=== PATIENT | male | born 1980 | race African-American/Black ===

== ENCOUNTER 2023-01-31 02:10 | Emergency (ER) | payer MEDICAID ==
[~2023-01-31] VITALS: Ht 188 cm; Wt 90.9 kg
[2023-01-31] MEDS ORDERED: ALBUTEROL SULF 2.5 MG/0.5ML(0.5%) NEB SOLN NEB ONE (03:15)
[2023-01-31] MEDS ORDERED: IPRATROPIUM BROM 0.5 MG/2.5ML INH SOL NEB ONE (03:15)
[2023-01-31] MEDS ORDERED: IPRATROPIUM BROM 0.5 MG/2.5ML INH SOL ONE (03:15)
[2023-01-31] MEDS ORDERED: ALBUTEROL SULF 2.5 MG/0.5ML(0.5%) NEB SOLN ONE (03:15)
[2023-01-31] MEDS ORDERED: DexAMETHasone SOD PHOS 10MG/1ML VIAL INJ IM ONE (03:30)
[2023-01-31 05:22] VITALS: BP 184/97
== END 2023-01-31 07:22 | disposition left against medical advice (07) ==
LOC: ER 02:10
DX: R06.02 Shortness of breath (principal); Z53.21 Procedure and treatment not carried out due to patient leaving prior to being seen by health care provider
CPT/HCPCS: 94640; 96372; 99281; J1100; J7644